=== PATIENT | male | born 1945 | race Caucasian/White ===

== ENCOUNTER 2025-08-24 09:15 | Inpatient (IN) | payer MEDICARE, BC ==
[~2025-08-24] VITALS: Ht 182.9 cm; Wt 79.4 kg
[2025-08-24] MEDS ORDERED: ROCURONIUM BROMIDE 50 MG/5 ML ONE (14:17)
[2025-08-24] MEDS ORDERED: FENTANYL PF 250MCG/5ML AMPUL ONE (14:17)
[2025-08-24] MEDS ORDERED: VANCOMYCIN 1 GM VIAL ONE (15:04)
[2025-08-24] MEDS ORDERED: dexaMETHasone SOD PHOSPHATE 2 ML ONE (15:04)
[2025-08-24] MEDS ORDERED: LIDOCAINE 2%-EPI 1:100,000 30 ML VIAL ONE (15:04)
[2025-08-24 16:00] VITALS: BP 143/63; TEMP 97.3; O2SAT 94
[2025-08-24 17:00] VITALS: BP 141/74; TEMP 98.2; O2SAT 95
[2025-08-24] MEDS ORDERED: CLOP75TA15 PO (17:22)
[2025-08-24] MEDS ORDERED: ATEN-170 PO (17:22)
[2025-08-24] MEDS ORDERED: TAMS-12 PO (17:22)
[2025-08-24] MEDS ORDERED: ONDANSETRON HCL/PF 4 MG/2 ML VIAL IV PRN (17:30)
[2025-08-24] MEDS ORDERED: HYDROMORPHONE 1 MG/1 ML DISP.SYRIN IV PRN (17:30)
[2025-08-24] MEDS ORDERED: ACETAMINOPHEN 325 MG TABLET PO PRN (17:30)
[2025-08-24] MEDS: IV NS 0.9% 1,000 ML IV PRN (17:51)
[2025-08-24 20:00] VITALS: BP 121/76; TEMP 97.5; O2SAT 95
[2025-08-24] MEDS: TAMSULOSIN 0.4 MG CAP.SR.24H PO SCH (20:25)
[2025-08-25] MEDS: VANCOMYCIN 1 GM in IV D5W 250ml IV SCH (01:01)
[2025-08-25 05:55] VITALS: O2SAT 95
[2025-08-25] MEDS: CLOPIDOGREL BISULFATE 75 MG TABLET PO SCH (08:45)
[2025-08-25] MEDS: ATENOLOL 25 MG TABLET PO SCH (08:45)
[2025-08-25 09:32] VITALS: BP 127/74; TEMP 97.7; O2SAT 97
== END 2025-08-25 14:30 | disposition home or self-care (01) | DRG 516 ==
LOC: DS 09:15 → MED 15:29
PROVIDERS: ADMIT Internal Medicine; ATTEND Internal Medicine
PROC: 09BR0ZZ Excision of Left Maxillary Sinus, Open Approach (ICD-10-PCS; principal; 2025-08-24 13:20)
PROC: 0NBR0ZX Excision of Maxilla, Open Approach, Diagnostic (ICD-10-PCS; principal; 2025-08-24 13:20)
PROC: 09UR07Z Supplement Left Maxillary Sinus with Autologous Tissue Substitute, Open Approach (ICD-10-PCS; principal; 2025-08-24 13:20)
PROC: 0NUR07Z Supplement Maxilla with Autologous Tissue Substitute, Open Approach (ICD-10-PCS; principal; 2025-08-24 13:20)
PROC: 0NSR0ZZ Reposition Maxilla, Open Approach (ICD-10-PCS; principal; 2025-08-24 13:20)
DX: T84.318A Breakdown (mechanical) of other bone devices, implants and grafts, initial encounter (principal); M87.08 Idiopathic aseptic necrosis of bone, other site; T84.69XA Infection and inflammatory reaction due to internal fixation device of other site, initial encounter; Z79.02 Long term (current) use of antithrombotics/antiplatelets; I10 Essential (primary) hypertension; S02.40CK Maxillary fracture, right side, subsequent encounter for fracture with nonunion; S02.40DK Maxillary fracture, left side, subsequent encounter for fracture with nonunion; M27.2 Inflammatory conditions of jaws; N40.0 Benign prostatic hyperplasia without lower urinary tract symptoms; Z79.899 Other long term (current) drug therapy; Y83.8 Other surgical procedures as the cause of abnormal reaction of the patient, or of later complication, without mention of misadventure at the time of the procedure; Y92.009 Unspecified place in unspecified non-institutional (private) residence as the place of occurrence of the external cause; X58.XXXD Exposure to other specified factors, subsequent encounter; J32.0 Chronic maxillary sinusitis; D16.4 Benign neoplasm of bones of skull and face
CPT/HCPCS: 71045-TC; 82962-TC; 88305-TC; 88311-TC; 94799-TC; A4217; A4223; A4338; G0378; J0360; J0461; J0690; J1100; J2704; J3010; J3373; J3490; J7030; J7060